=== PATIENT | female | born 1985 | race Caucasian/White ===

== ENCOUNTER 2018-06-21 21:53 | Emergency (ER) | payer OTHER ==
[~2018-06-21] VITALS: Ht 172.7 cm; Wt 67.6 kg
[~2018-06-21 21:53] MED LIST: ZOFRAN ODT4 MG PO
[2018-06-21] MEDS ORDERED: TRAMADOL 50 MG50 MG PO (22:45)
[2018-06-21] MEDS ORDERED: IBUPROFEN 800800 MG PO (22:45)
[2018-06-21 23:02] VITALS: BP 135/85
== END 2018-06-21 23:04 | disposition home or self-care (01) ==
LOC: M.ERS 21:53
DX: G56.02 Carpal tunnel syndrome, left upper limb (principal); M25.512 Pain in left shoulder